=== PATIENT | female | born 1990 | race Caucasian/White ===

== ENCOUNTER 2017-12-30 22:46 | Emergency (ER) | payer OTHER ==
[~2017-12-30] VITALS: Ht 172.7 cm; Wt 70.3 kg
[2017-12-30 22:58] VITALS: BP 127/83
== END 2017-12-31 00:50 | disposition admitted as inpatient to this hospital (09) ==
LOC: ERH 22:46
DX: R10.10 Upper abdominal pain, unspecified (principal); R11.2 Nausea with vomiting, unspecified; R19.7 Diarrhea, unspecified
CPT/HCPCS: 81001; 81025; 99281

== ENCOUNTER 2018-02-01 22:02 | Emergency (ER) | payer OTHER ==
[~2018-02-01] VITALS: Ht 172.7 cm; Wt 72.6 kg
--- NOTE | 2018-02-02 00:14 | ED GI/GU/ABDOMINAL COMPLAINT ---
History of Present Illness General Chief Complaint: Abdominal Pain/Flank Pain Stated Complaint: ABD PAIN Source: patient, family, old records Exam Limitations: no limitations Vital Signs & Intake/Output Vital Signs & Intake/Output Vital Signs Date Time Temp Pulse Resp B/P B/P Pulse O2 O2 Flow FiO2 Mean Ox Delivery Rate 02/02 0009 97.9 83 18 111/72 98 Room Air 02/01 2212 96.3 89 18 118/77 96 Room Air ED Intake and Output 02/02 0000 02/01 1200 Intake Total Output Total Balance Patient 160 lb Weight Weight Reported by Patient Measurement Method Allergies Coded Allergies: Penicillins (Intermediate, rash 02/01/18) amoxicillin (RASH 12/30/17) Triage Note: PT TO ER C/C EPIGASTRIC PAIN X 1 DAY. HX GERD, UNSURE IF RELATED. PAIN SQUEEZING IN NATURE, PT STATES PAIN OCCURS AFTER EATING. DENIES N/V/D. DENIES URINARY S/S. Triage Nurses Notes Reviewed? yes LMP (ages 10-50): unknown ? n Is pt currently ? No Onset: 3 days Duration: day(s):, better, continues in ED, waxing and waning Timing: recent history Quality/Severity: burning, moderate, severe Location: epigastric Radiation: chest, RUQ Activities at Onset: eating Prior Abdominal Problems: similar symptoms Past Sexual History: Unobtainable at this time Modifying Factors: Improves With: rest. Worsens With: eating. Associated Symptoms: abdominal pain, nausea/vomiting HPI: 1 month prior to admission patient was prescribed Nexium for GERD which helped initially. 3 days prior to admission patient complains of episodic epigastric pain described as burning moderate to severe occurring after eating ran into the right upper quadrant and chest. She denies fever chills nausea vomiting diarrhea cough shortness breath headache dysuria rash bleeding. Past History Travel History Traveled to [place] past 21 day No Medical History Any Pertinent Medical History? see below for history Gastrointestinal: GERD Psychiatric: bipolar disease Surgical History Surgical History: non-contributory Psychosocial History What is your primary language Latvian Tobacco Use: Never used Family History Hx Contributory? No Review of Systems Review of Systems Constitutional: Reports: no symptoms. EENTM: Reports: no symptoms. Respiratory: Reports: no symptoms. Cardiovascular: Reports: no symptoms. GI: Reports: see HPI, abdominal pain. Genitourinary: Reports: no symptoms. Musculoskeletal: Reports: no symptoms. Skin: Reports: no symptoms. Neurological/Psychological: Reports: no symptoms. Hematologic/Endocrine: Reports: no symptoms. Immunologic/Allergic: Reports: no symptoms. All Other Systems: Reviewed and Negative Physical Exam Physical Exam General Appearance: well developed/nourished, alert, awake, anxious, mild distress Head: atraumatic, normal appearance Eyes: Bilateral: normal appearance, PERRL, EOMI, normal inspection. Ears, Nose, Throat, Mouth: hearing grossly normal, moist mucous membrane Neck: normal inspection, supple, full range of motion, normal alignment Respiratory: normal breath sounds, chest non-tender, no respiratory distress, quiet respiration, lungs clear Cardiovascular: regular rate/rhythm, normal peripheral pulses, norml femoral pulses equa Peripheral Pulses: 4+ carotid (R), 4+ carotid (L) Gastrointestinal: soft, non-tender, no organomegaly, abnormal bowel sounds Back: normal inspection, normal range of motion Extremities: normal range of motion, no ligament instability Neurologic/Psych: no motor/sensory deficits, awake, alert, oriented x 3, normal gait, normal mood/affect, shopper insights manager II-XII nml as tested Skin: intact, normal color, warm/dry Core Measures ACS in differential dx? No Sepsis Present: No Sepsis Focused Exam Completed? No Progress Differential Diagnosis: biliary colic, gastritis, pancreatitis, PUD/GERD Plan of Care: Orders Procedure Date/time Status LIPASE 02/02 0005 Complete COMPREHENSIVE METABOLIC PANEL 02/02 0005 Complete CBC WITHOUT DIFFERENTIAL 02/02 0005 Complete Laboratory Tests 02/02/ 0022: Anion Gap 11, Estimated GFR > 60, BUN/Creatinine Ratio 18.6, Glucose 97, Calcium 8.9, Total Bilirubin 0.3, AST 21, ALT 24, Alkaline Phosphatase 28, Total Protein 6.3, Albumin 3.8, Globulin 2.5, Albumin/Globulin Ratio 1.5, Lipase 46, CBC w Diff MAN DIFF ORDERED, RBC 4.51, MCV 83.7, MCH 28.7, MCHC 34.3, RDW 13.2, MPV 7.6, Gran % 46.0, Lymphocytes % 20.9, Monocytes % 7.2, Eosinophils % 25.5 H, Basophils % 0.4, Absolute Granulocytes 4.8, Segmented Neutrophils 44, Absolute Lymphocytes 2.2, Lymphocytes 33, Monocytes 2, Absolute Monocytes 0.7 H, Eosinophils 19 H, Absolute Eosinophils 2.6, Basophils 2, Absolute Basophils 0, Platelet Estimate ADEQUATE, Polychromasia 1+, Ovalocytes FEW, Fld Total RBCs Counted 100 Initial ED EKG: none Departure Departure Time of Disposition: 142 Disposition: HOME OR SELF CARE Condition: Stable Clinical Impression Primary Impression: Gastroesophageal reflux disease with esophagitis Referrals: Polo CASTANEDA,Martha Ly MD,Khoi (PCP/Family) Departure Forms: Customer Survey General Discharge Information Prescriptions: Current Visit Scripts Metoclopramide HCl (Reglan) 1 TAB PO 4 TIMES/DAY PRN reflux #120 TAB 30 minutes before meals and bedtime Hyoscyamine Sulfate (Levsin-Sl) 1-2 TAB SL Q4P PRN abdominal pain #60 TAB
[2018-02-02 00:30] LABS: ABSOLUTE BASOPHIL COUNT 0 /CUMM (0.0-0.2); ABSOLUTE EOSINOPHIL COUNT 2.6 /CUMM (0.0-0.7); ABSOLUTE GRANULOCYTE CT 4.8 /CUMM (1.4-6.5); ABSOLUTE LYMPH COUNT 2.2 /CUMM (1.2-3.4); ABSOLUTE MONOCYTE COUNT 0.7 /CUMM (0.10-0.60); BASOPHIL % 0.4 % (0.0-2.0); EOSINOPHIL % 25.5 % (0-5); HEMATOCRIT 37.8 % (37-47); MEAN CORPUSCULAR HGB 28.7 PG (27.0-31.0); MEAN CORPUSCULAR HGB CONC 34.3 G/DL (33.0-37.0); MEAN CORPUSCULAR VOLUME 83.7 FL (81.0-99.0); MEAN PLATELET VOLUME 7.6 FL (7.4-10.4); PLATELET COUNT 152 /CUMM (130-400); RBC DISTRIBUTION WIDTH 13.2 % (11.5-14.5); RED BLOOD CELL CT 4.51 /CUMM (4.20-5.40); WHITE BLOOD CELL COUNT 10.4 /CUMM (4.8-10.8)
[2018-02-02] MEDS ORDERED: REGLAN10 M1 PO (01:44)
[2018-02-02] MEDS ORDERED: LEVSIN-SL0.125 MG SL (01:44)
[2018-02-02 01:52] VITALS: BP 113/64
== END 2018-02-02 01:52 ==
LOC: ERH 22:02
PROVIDERS: Emergency Medicine
DX: K21.0 Gastro-esophageal reflux disease with esophagitis (principal)
CPT/HCPCS: 96374; 96375; J0131; J2765